=== PATIENT | male | born 2000 | race Two or more races ===

== ENCOUNTER 2019-07-23 21:12 | Emergency (ER) | payer OTHER ==
[2019-07-23 21:18] VITALS: BP 133/87; PULSE 65; TEMP 98.2; BMI 24.3
[2019-07-23] MEDS ORDERED: CYCLOBENZAPRINE HCL 10 MG TABLET (FP) PO ONE (22:02)
[2019-07-23] MEDS ORDERED: KETOROLAC TROMETHAMINE 30 MG/1 ML VIAL IM ONE (22:02)
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
[2019-07-23] MEDS ORDERED: CYCLOBENZAPRINE HCL 10 MG TABLET (FP) ONE (22:21)
[2019-07-23] MEDS ORDERED: KETOROLAC TROMETHAMINE 30 MG/1 ML VIAL ONE (22:21)
== END 2019-07-23 23:00 | disposition home or self-care (01) ==
LOC: JERFT 21:12
PROC: 3E0233Z Introduction of Anti-inflammatory into Muscle, Percutaneous Approach (ICD-10-PCS; principal; 2019-07-23)
DX: Z04.1 Encounter for examination and observation following transport accident (principal); M79.602 Pain in left arm; M54.5 Low back pain; V43.52XA Car driver injured in collision with other type car in traffic accident, initial encounter; Y93.89 Activity, other specified; Y92.410 Unspecified street and highway as the place of occurrence of the external cause
CPT/HCPCS: 72040-TC; 73030-TC-LT-FY; 73110-TC-LT-FY; 73130-TC-LT-FY; 99281-25

== ENCOUNTER 2020-06-24 01:57 | Emergency (ER) | payer BC, OTHER ==
[2020-06-24 02:23] VITALS: BMI 25.7
--- NOTE | 2020-06-24 02:49 | PDOC ---
History of Present Illness - General Chief Complaint: Headache Stated Complaint: FEVER,HEADACHE Time Seen by Provider: 06/24/20 02:24 - History of Present Illness Initial Comments: 29 YOM no significant past medical history presenting with fever, chills, headache, and fatigue of 2 days duration. Patient reports home temp of 103.1. Also mentions one bout of diarrhea today. Reports that he has been taking ibuprofen for fever. Denies CP, SOB, nausea/ vomiting. Constitutional: No Weight Change, yes Fever, yes Chills, yes Night Sweats, yes Fatigue, No Malaise ENT/Mouth: No Hearing Changes, No Ear Pain, No Nasal Congestion, No Sinus Pain, No Hoarseness, No sore throat, No Rhinorrhea, No Swallowing Difficulty Eyes: No Eye Pain, No Swelling, No Redness, No Foreign Body, No Discharge, No Vision Changes Cardiovascular: No Chest Pain, No SOB, No PND, No Dyspnea on Exertion, No Orthopnea, No Claudication, No Edema, No Palpitations Respiratory: No Cough, No Sputum, No Wheezing, No Smoke Exposure, No Dyspnea Gastrointestinal: No Nausea, No Vomiting, yes Diarrhea, No Constipation, No Pain, No Heartburn, No Anorexia, No Dysphagia, No Hematochezia, No Melena, No Flatulence, No Jaundice Genitourinary: No Dysmenorrhea, No DUB, No Dyspareunia, No Dysuria, No Urinary Frequency, No Hematuria, No Urinary Incontinence, No Urgency, No Flank Pain, No Urinary Flow Changes, No Hesitancy Musculoskeletal: No Arthralgias, No Myalgias, No Joint Swelling, No Joint Stiffness, No Back Pain, No Neck Pain, No Injury History Skin: No Skin Lesions, No Pruritis, No Hair Changes, No Breast/Skin Changes, No Nipple Discharge Neuro: No Weakness, No Numbness, No Paresthesias, No Loss of Consciousness, No Syncope, No Dizziness, No Headache, No Coordination Changes, No Recent Falls Psych: No Anxiety/Panic, No Depression, No Insomnia, No Personality Changes, No Delusions, No Rumination, No SI/HI/AH/VH, No Social Issues, No Memory Changes, No Violence/Abuse Hx., No Eating Concerns Heme/Lymph: No Bruising, No Bleeding, No Transfusions History, No Lymphadenopathy Endocrine: No Polyuria, No Polydipsia, No Temperature Intolerance 06/24/20 03:33 Past History - Travel History Traveled outside of the country in the last 30 days: No Close contact w/someone who was outside of country & ill: No - Medical History Allergies/Adverse Reactions: Allergies Allergy/AdvReac Type Severity Reaction Status Date / Time No Known Allergies Allergy Verified 06/24/20 02:20 Home Medications: Ambulatory Orders Cyclobenzaprine HCl [Flexeril -] 10 mg PO HS #7 tablet 07/23/19 Ibuprofen [Motrin -] 600 mg PO TID #21 tablet 07/23/19 Azithromycin [Zithromax 250mg Tablets -] 250 mg PO UTDICT #6 tab 06/24/20 COPD: No - Psycho-Social/Smoking History Smoking History: Never smoked Have you smoked in the past 12 months: No Information on smoking cessation initiated: No - Substance Abuse Hx (Audit-C & DAST Scrn) How often the patient has a drink containing alcohol: Never Score: In Men: 4 or > Positive; In Women: 3 or > Positive: 0 Screen Result (Pos requires Nsg. Audit-10AR): Negative In the last yr the pt used illegal drug/Rx for NonMed reason: No Score: Yes response is considered Positive: 0 Screen Result (Positive result requires Nsg. DAST-10): Negative *Physical Exam - Vital Signs Last Vital Signs Temp Pulse Resp BP Pulse Ox 99.7 F H 110 H 20 136/65 97 06/24/20 02:21 06/24/20 02:21 06/24/20 02:21 06/24/20 02:21 06/24/20 02:21 - Physical Exam General Appearance: Yes: Nourished, Appropriately Dressed HEENT: positive: EOMI, MASSIEL, Normal ENT Inspection Neck: positive: Trachea midline Respiratory/Chest: positive: Lungs Clear, Normal Breath Sounds Cardiovascular: positive: Regular Rhythm, Regular Rate, S1, S2 Gastrointestinal/Abdominal: positive: Normal Bowel Sounds, Flat, Soft Musculoskeletal: positive: Normal Inspection Extremity: positive: Normal Capillary Refill, Normal Inspection, Normal Range of Motion Integumentary: positive: Normal Color, Dry, Warm Neurologic: positive: creative writer II-XII NML intact, Fully Oriented, Alert, Normal Mood/Affect, Normal Response, Motor Strength 5/5 Medical Decision Making - Medical Decision Making 29 YOM no significant past medical history presenting with fever, chills, headache, and fatigue of 2 days duration. Patient reports home temp of 103.1. Also mentions one bout of diarrhea today. Reports that he has been taking ibuprofen for fever. Denies CP, SOB, nausea/ vomiting. Patient was tachycardic to 110 on arrival, temp 99.7, pulse o2 97% on room air. Physical exam wnl. ddx includes but is not limited to: COVID-19, influenza, viral illness, pneumonia. plan: CXR reassess: small consolidation see on left side of CXR. Will d/c home with prescription of azithromycin. dispo: d/c to home. Discharge - Discharge Information Problems reviewed: Yes Clinical Impression/Diagnosis: Pneumonia - Admission No - Additional Discharge Information Prescriptions: Azithromycin [Zithromax 250mg Tablets -] 250 mg PO UTDICT #6 tab - Follow up/Referral Referrals: Gavin Ward MD [Primary Care Provider] - - Patient Discharge Instructions Patient Printed Discharge Instructions: Pneumonia-Adult Additional Instructions: You were seen in the emergency department for fever, chills, and fatigue. You received a chest x ray which revealed a likely pneumonia in your left lung. You were considered medically stable and safe to continue treatment from home. A prescription for an antibiotic has been sent to your specified pharmacy. Please take this medication as directed. You may also take tylenol for you fever. If you experience worsening of your symptoms including chest pain, shortness of breath, blood in your sputum, confusion or change in mental status please return to the emergency department for further management. - Post Discharge Activity
--- NOTE | 2020-06-24 03:04 | PDOC ---
Attending Attestation - Resident Resident Name: Reid Rodríguez - ED Attending Attestation I have performed the following: I have examined & evaluated the patient, The case was reviewed & discussed with the resident, I agree w/resident's findings & plan, Exceptions are as noted - HPI HPI: 06/24/20 05:22 See resident HPI - Physicial Exam PE: 06/24/20 05:22 Agree with documented exam - Medical Decision Making 06/24/20 05:22 F/c, drummond, fatigue progressive over last 48h, Tmax at home 103.1F, responsive to ibuprofen, a/w diarrhea starting today. Covid?, viral syndrome?, pna? Afebrile here, +tachycardic f/u cxr possible LL consolidation will send rx for azithromycin dc Discharge - Discharge Information Problems reviewed: Yes Clinical Impression/Diagnosis: Pneumonia - Additional Discharge Information Prescriptions: Azithromycin [Zithromax 250mg Tablets -] 250 mg PO UTDICT #6 tab - Follow up/Referral Referrals: Gavin Ward MD [Primary Care Provider] - - Patient Discharge Instructions Patient Printed Discharge Instructions: Pneumonia-Adult Additional Instructions: You were seen in the emergency department for fever, chills, and fatigue. You received a chest x ray which revealed a likely pneumonia in your left lung. You were considered medically stable and safe to continue treatment from home. A prescription for an antibiotic has been sent to your specified pharmacy. Please take this medication as directed. You may also take tylenol for you fever. If you experience worsening of your symptoms including chest pain, shortness of breath, blood in your sputum, confusion or change in mental status please return to the emergency department for further management. - Post Discharge Activity
[2020-06-24 03:15] VITALS: BP 119/77; PULSE 89; TEMP 99
== END 2020-06-24 03:47 | disposition home or self-care (01) ==
LOC: EDBD 01:57 → JER 01:57
DX: J18.9 Pneumonia, unspecified organism (principal)
CPT/HCPCS: 71046-TC-FY; 99283-25